=== PATIENT | male | born 1965 | race Caucasian/White ===

== ENCOUNTER → 2020-02-02 08:32 | Outpatient (CLI) | payer BC, SELFPAY ==
--- NOTE | ~2020-02-02 | MR_ITS ---
EXAMINATION: MR knee LT wo con DATE: 02/02/2020 09:29 INDICATION: Medial left knee pain and weakness TECHNIQUE: Magnetic resonance imaging (MRI) of the left knee was performed without intravenous contra st. Sequences included coronal PD-weighted FSE, coronal PD-weighted FS FSE, sagittal T2-weighted FSE , sagittal PD-weighted FS FSE and axial PD weighted fat saturated FSE. COMPARISON: None. FINDINGS: Medial compartment: Medial meniscus is normal. Mild chondral surface regularity along the lateral margin of the anterior to central weightbearing medial femoral condyle. Lateral compartment: Lateral meniscus is normal. Articular cartilage is normal. Patellofemoral compartment: Chondral fissuring without degenerative subchondral changes at the central aspect of the trochlear gr oove. Additional deep chondral fissure with minimal underlying cortical irregularity at the inferior aspect of the medial trochlea. Deep chondral fissuring along the lateral patellar facet with small fo cus of subarticular edema at the superolateral aspect of the lateral trochlea. Ligaments and tendons: Anterior and posterior cruciate ligaments are normal. The medial collateral ligament and fibular elliot ateral ligament complex are normal. The extensor mechanism is normal. The visualized medial and later al hamstring tendons as well as the iliotibial band are normal. Fluid: Small left knee joint effusion. No loose osteochondral bodies identified. Osseous/other: Normal marrow signal aside from the previous noted small focus of subarticular edema at the lateral p atellar facet. No fracture or pathologic marrow replacing process. There is edema in the superficial suprapatellar fat pad consistent with fat pad impingement syndrome. IMPRESSION: 1. 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 2. Edema in the superficial suprapatellar fat pad consistent with fat pad impingement syndrome. Reviewed, dictated and finalized at location B. [employer] IMPRESSION: 1. 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 2. Edema in the superficial suprapatellar fat pad consistent with fat pad impin gement syndrome.
== END ==
PROVIDERS: PCP Internal Medicine; Visit Provider Internal Medicine
DX: M25.562 Pain in left knee (principal); R60.0 Localized edema
CPT/HCPCS: 73721